=== PATIENT | male | born 1950 | race Asian ===

== ENCOUNTER 2017-02-23 07:42 | Outpatient (CLI) | payer OTHER ==
[~2017-02-23 07:42] MED LIST: EDLUAR10 MG PO; GABA100C2 PO; GABA300C2 PO; MYRBETRIQ50 MG PO; NORCO 10/325***1 TAB PO; OMEPRAZOLE20 M2 PO; OMEPRAZOLE40 MG OR; PAXIL10 MG PO; PRAVACHOL20 MG PO; TAMS0.4C PO; TRIBENZO2 PO; WARFARIN5 MG PO; ZOFRAN8 MG OR
[2017-02-23 11:06] LABS: PLATELET COUNT 306 K/uL (142-355)
[2017-02-23 11:25] LABS: POTASSIUM 3.9 mmol/L (3.6-5.2); SODIUM 131 mmol/L (136-145)
== END 2017-02-23 19:21 | disposition home or self-care (01) ==
LOC: LABW 07:42
PROVIDERS: Internal Medicine
DX: I10 Essential (primary) hypertension (principal)
CPT/HCPCS: 36415; 80053; 80061; 81000; 83735; 84443; 85027

== ENCOUNTER 2017-06-14 09:28 | Outpatient (CLI) | payer OTHER | END 2017-06-14 10:30 | disposition home or self-care (01) | LOC: LABW 09:28 | PROVIDERS: Internal Medicine | DX: I10 Essential (primary) hypertension (principal); E83.42 Hypomagnesemia | CPT/HCPCS: 36415; 80053; 83735 ==

== ENCOUNTER 2017-09-14 08:48 | Outpatient (CLI) | payer OTHER ==
[2017-09-14 09:13] LABS: PLATELET COUNT 291 K/uL (142-355)
[2017-09-14 10:18] LABS: POTASSIUM 3.3 mmol/L (3.6-5.2)
== END 2017-09-14 19:11 | disposition home or self-care (01) ==
LOC: LABW 08:48
PROVIDERS: Internal Medicine
DX: I10 Essential (primary) hypertension (principal); E83.42 Hypomagnesemia; N40.0 Benign prostatic hyperplasia without lower urinary tract symptoms
CPT/HCPCS: 36415; 80053; 80061; 81000; 83735; 84153; 84443; 85027

== ENCOUNTER 2018-01-23 09:06 | Outpatient (CLI) | payer OTHER | END 2018-01-23 19:16 | disposition home or self-care (01) | LOC: LABW 09:06 | PROVIDERS: Internal Medicine | DX: I10 Essential (primary) hypertension (principal) | CPT/HCPCS: 36415; 80053; 80061; 83735 ==

== ENCOUNTER 2018-07-10 08:52 | Outpatient (CLI) | payer OTHER ==
[2018-07-10 09:35] LABS: PLATELET COUNT 285 K/uL (142-355); POTASSIUM 3.8 mmol/L (3.6-5.2)
== END 2018-07-10 19:43 | disposition home or self-care (01) ==
LOC: LABW 08:52
PROVIDERS: Internal Medicine
DX: I10 Essential (primary) hypertension (principal); E78.00 Pure hypercholesterolemia, unspecified
CPT/HCPCS: 36415; 80053; 80061; 81000; 83735; 84439; 84443; 84550; 85027

== ENCOUNTER 2018-10-15 08:13 | Outpatient (CLI) | payer OTHER ==
[2018-10-15 08:37] LABS: PLATELET COUNT 290 K/uL (142-355)
[2018-10-15 08:54] LABS: POTASSIUM 3.7 mmol/L (3.6-5.2)
== END 2018-10-15 19:56 | disposition home or self-care (01) ==
LOC: LABW 08:13
PROVIDERS: Internal Medicine
DX: I10 Essential (primary) hypertension (principal); Z79.899 Other long term (current) drug therapy
CPT/HCPCS: 36415; 80053; 80061; 81000; 83735; 84443; 84550; 85027

== ENCOUNTER 2019-01-22 08:35 | Outpatient (CLI) | payer OTHER | END 2019-01-22 19:03 | disposition home or self-care (01) | LOC: LABW 08:35 | PROVIDERS: Internal Medicine | DX: E78.00 Pure hypercholesterolemia, unspecified (principal); R79.89 Other specified abnormal findings of blood chemistry; Z12.5 Encounter for screening for malignant neoplasm of prostate; N40.0 Benign prostatic hyperplasia without lower urinary tract symptoms | CPT/HCPCS: 36415; 80061; 84153; 84439; 84443 ==

== ENCOUNTER 2019-08-27 10:32 | Outpatient (CLI) | payer OTHER ==
[2019-08-27 11:08] LABS: PLATELET COUNT 299 K/uL (142-355)
[2019-08-27 11:28] LABS: POTASSIUM 4.2 mmol/L (3.6-5.2)
== END 2019-08-27 22:22 | disposition home or self-care (01) ==
LOC: LAB 10:32
PROVIDERS: Internal Medicine
DX: I10 Essential (primary) hypertension (principal); E03.8 Other specified hypothyroidism; E78.00 Pure hypercholesterolemia, unspecified
CPT/HCPCS: 80053; 80061; 81000; 83735; 84439; 84443; 85027

== ENCOUNTER 2020-02-25 12:23 | Outpatient (CLI) | payer OTHER ==
[2020-02-25 12:59] LABS: PLATELET COUNT 301 K/uL (142-355)
[2020-02-25 13:19] LABS: POTASSIUM 3.5 mmol/L (3.6-5.2)
== END 2020-02-25 20:45 | disposition home or self-care (01) ==
LOC: LAB 12:23
PROVIDERS: ATTEND Internal Medicine
DX: E78.00 Pure hypercholesterolemia, unspecified (principal); I10 Essential (primary) hypertension; M19.90 Unspecified osteoarthritis, unspecified site; E83.42 Hypomagnesemia
CPT/HCPCS: 80053; 80061; 81000; 83735; 84439; 84443; 84550; 85027

== ENCOUNTER 2020-03-10 17:02 | Outpatient (CLI) | payer OTHER ==
[2020-03-10 17:26] LABS: PLATELET COUNT 283 K/uL (142-355)
== END 2020-03-10 20:04 | disposition home or self-care (01) ==
LOC: LAB 17:02
PROVIDERS: ATTEND Internal Medicine
DX: D72.828 Other elevated white blood cell count (principal); R79.89 Other specified abnormal findings of blood chemistry; Z79.899 Other long term (current) drug therapy
CPT/HCPCS: 84439; 84443; 85027

== ENCOUNTER 2020-04-12 14:11 | Outpatient (CLI) | payer OTHER ==
[2020-04-12 14:29] LABS: PLATELET COUNT 287 K/uL (142-355)
== END 2020-04-12 21:12 | disposition home or self-care (01) ==
LOC: LAB 14:11
PROVIDERS: ATTEND Internal Medicine
DX: D72.828 Other elevated white blood cell count (principal); R79.89 Other specified abnormal findings of blood chemistry; Z79.899 Other long term (current) drug therapy
CPT/HCPCS: 84439; 84443; 85027

== ENCOUNTER 2020-05-20 13:53 | Outpatient (CLI) | payer OTHER ==
[2020-05-20 14:26] LABS: PLATELET COUNT 294 K/uL (142-355)
[2020-05-20 14:44] LABS: POTASSIUM 4.9 mmol/L (3.6-5.2)
== END 2020-05-20 20:00 | disposition home or self-care (01) ==
LOC: LAB 13:53
PROVIDERS: ATTEND Internal Medicine
DX: Z00.00 Encounter for general adult medical examination without abnormal findings (principal); Z12.5 Encounter for screening for malignant neoplasm of prostate; Z79.899 Other long term (current) drug therapy
CPT/HCPCS: 80053; 80061; 81000; 84153; 84439; 84443; 85027

== ENCOUNTER 2020-06-03 07:51 | Outpatient (CLI) | payer OTHER | END 2020-06-03 20:03 | disposition home or self-care (01) | LOC: CT 07:51 | PROVIDERS: ATTEND Internal Medicine | DX: Z12.2 Encounter for screening for malignant neoplasm of respiratory organs (principal); Z13.6 Encounter for screening for cardiovascular disorders; R19.09 Other intra-abdominal and pelvic swelling, mass and lump; F17.210 Nicotine dependence, cigarettes, uncomplicated | CPT/HCPCS: G0297-TC ==

== ENCOUNTER 2020-07-28 12:09 | Outpatient (CLI) | payer OTHER ==
[2020-07-28 12:32] LABS: PLATELET COUNT 275 K/uL (142-355)
== END 2020-07-28 21:26 | disposition home or self-care (01) ==
LOC: LAB 12:09
PROVIDERS: ATTEND Internal Medicine
DX: I10 Essential (primary) hypertension (principal); D72.828 Other elevated white blood cell count
CPT/HCPCS: 80061; 85027

== ENCOUNTER 2020-10-27 12:32 | Outpatient (CLI) | payer OTHER ==
[2020-10-27 13:20] LABS: PLATELET COUNT 320 K/uL (142-355)
[2020-10-27 14:00] LABS: POTASSIUM 4.3 mmol/L (3.6-5.2)
== END 2020-10-27 20:58 | disposition home or self-care (01) ==
LOC: LAB 12:32
PROVIDERS: ATTEND Internal Medicine
DX: I10 Essential (primary) hypertension (principal); M54.41 Lumbago with sciatica, right side
CPT/HCPCS: 80053; 80061; 85027

== ENCOUNTER 2021-01-06 14:08 | Outpatient (CLI) | payer OTHER | END 2021-01-06 18:00 | disposition home or self-care (01) | LOC: RAD 14:08 | PROVIDERS: ATTEND Internal Medicine | DX: M25.512 Pain in left shoulder (principal) ==

== ENCOUNTER 2021-02-04 14:32 | Outpatient (CLI) | payer OTHER ==
[2021-02-04 14:52] LABS: PLATELET COUNT 303 K/uL (142-355)
[2021-02-04 15:11] LABS: POTASSIUM 3.6 mmol/L (3.6-5.2)
== END 2021-02-04 21:05 | disposition home or self-care (01) ==
LOC: LAB 14:32
PROVIDERS: ATTEND Internal Medicine
DX: I10 Essential (primary) hypertension (principal); E03.8 Other specified hypothyroidism; M54.41 Lumbago with sciatica, right side
CPT/HCPCS: 80053; 80061; 84439; 84443; 85027

== ENCOUNTER 2021-06-08 16:53 | Observation (INO) | payer OTHER ==
[~2021-06-08] VITALS: Ht 180.3 cm; Wt 93.6 kg
[~2021-06-08 16:53] MED LIST changes: -EDLUAR10 MG PO; -PRAVACHOL20 MG PO; +PRAVASTATIN PO; +ZOLPIDEM PO
[2021-06-08 16:58] VITALS: BP 162/96; TEMP 98.7
[2021-06-08 17:29] LABS: PLATELET COUNT 345 K/uL (142-355)
[2021-06-08 17:30] VITALS: BP 153/98
[2021-06-08 17:37] LABS: POTASSIUM 3.9 mmol/L (3.6-5.2)
[2021-06-08 17:44] LABS: PARTIAL THROMBOPLASTIN TIME 23.9 SECONDS (24.5-33.6)
[2021-06-08 18:00] VITALS: BP 150/87
[2021-06-08 19:43] VITALS: BP 159/90; TEMP 98.5
[2021-06-08 19:57] VITALS: BP 159/90; TEMP 98.5; Ht 180.3 cm; Wt 93.6 kg
[2021-06-08 23:49] VITALS: BP 112/65; TEMP 98.5
[2021-06-09 04:08] VITALS: BP 91/54; TEMP 98.4
[2021-06-09 08:00] VITALS: BP 127/77; TEMP 98.4
[2021-06-09 08:57] LABS: PLATELET COUNT 355 K/uL (142-355)
[2021-06-09] MEDS ORDERED: OMEPRAZOLE DR20 MG PO (09:50)
[2021-06-09] MEDS ORDERED: POT CHLORIDE10 MEQ PO (09:51)
[2021-06-09] MEDS ORDERED: COZAAR100 MG PO (09:52)
[2021-06-09] MEDS ORDERED: TIZANIDINE HYDRO4 M1 PO (09:53)
[2021-06-09] MEDS ORDERED: HYDR25TA60 PO (09:53)
[2021-06-09] MEDS ORDERED: SPIRONOLACT25 MG PO (09:54)
[2021-06-09] MEDS ORDERED: EUTHYROX50 MCG PO (09:55)
[2021-06-09] MEDS ORDERED: MOBIC15 MG PO (09:56)
== END 2021-06-09 11:14 | disposition home or self-care (01) ==
LOC: ED 16:53 → MED/SURG 19:00
PROVIDERS: ADMIT Hospitalist; ATTEND Internal Medicine Endocrinology, Diabetes & Metabolism
DX: R07.89 Other chest pain (principal); K21.9 Gastro-esophageal reflux disease without esophagitis; I25.10 Atherosclerotic heart disease of native coronary artery without angina pectoris; E78.49 Other hyperlipidemia; I10 Essential (primary) hypertension; E03.8 Other specified hypothyroidism; I73.89 Other specified peripheral vascular diseases; N40.0 Benign prostatic hyperplasia without lower urinary tract symptoms; M70.31 Other bursitis of elbow, right elbow; R06.02 Shortness of breath
CPT/HCPCS: 36415; 80048; 80053; 82550; 83880; 84484; 85027; 85610; 85730; 87635; 93005; 94760; 99220; 99284; G0378; J1650; J2270; U0003

== ENCOUNTER 2021-07-06 13:52 | Outpatient (CLI) | payer OTHER ==
[~2021-07-06 13:52] MED LIST changes: +COZAAR100 MG PO; +EUTHYROX50 MCG PO; +HYDR25TA60 PO; +MOBIC15 MG PO; +OMEPRAZOLE DR20 MG PO; +POT CHLORIDE10 MEQ PO; +SPIRONOLACT25 MG PO; +TIZANIDINE HYDRO4 M1 PO
== END 2021-07-06 19:00 | disposition home or self-care (01) ==
LOC: RESP 13:52
PROVIDERS: ATTEND Specialist
DX: R07.89 Other chest pain (principal); R94.31 Abnormal electrocardiogram [ECG] [EKG]

== ENCOUNTER 2021-08-16 15:33 | Outpatient (CLI) | payer OTHER ==
[2021-08-16 15:56] LABS: PLATELET COUNT 257 K/uL (142-355)
[2021-08-16 16:23] LABS: POTASSIUM 3.8 mmol/L (3.6-5.2)
== END 2021-08-16 19:12 | disposition home or self-care (01) ==
LOC: LAB 15:33
PROVIDERS: ATTEND Internal Medicine
DX: I10 Essential (primary) hypertension (principal); Z12.5 Encounter for screening for malignant neoplasm of prostate; N40.0 Benign prostatic hyperplasia without lower urinary tract symptoms
CPT/HCPCS: 80053; 80061; 81000; 83735; 84153; 84439; 84443; 85027

== ENCOUNTER 2022-07-03 10:09 | Outpatient (CLI) | payer OTHER | END 2022-07-03 18:57 | disposition home or self-care (01) | LOC: RAD 10:09 | PROVIDERS: ATTEND Internal Medicine | DX: R07.89 Other chest pain (principal) ==

== ENCOUNTER 2022-09-08 09:14 | Outpatient (CLI) | payer OTHER | END 2022-09-08 18:57 | disposition home or self-care (01) | LOC: CT 09:14 | PROVIDERS: ATTEND Internal Medicine | DX: R91.1 Solitary pulmonary nodule (principal); Z12.2 Encounter for screening for malignant neoplasm of respiratory organs; Z13.820 Encounter for screening for osteoporosis; M85.88 Other specified disorders of bone density and structure, other site ==

== ENCOUNTER 2022-12-20 10:21 | Day surgery (SDC) | payer OTHER ==
[~2022-12-20] VITALS: Ht 165.1 cm; Wt 68.0 kg
== END 2022-12-20 15:35 | disposition home or self-care (01) ==
LOC: OR 10:21
PROVIDERS: ATTEND Internal Medicine Gastroenterology
PROC: 0DBK8ZX Excision of Ascending Colon, Via Natural or Artificial Opening Endoscopic, Diagnostic (ICD-10-PCS; principal; 2022-12-20)
DX: Z12.11 Encounter for screening for malignant neoplasm of colon (principal); Z86.010 Personal history of colon polyps; D12.2 Benign neoplasm of ascending colon; K57.30 Diverticulosis of large intestine without perforation or abscess without bleeding; K64.0 First degree hemorrhoids; I10 Essential (primary) hypertension; M19.90 Unspecified osteoarthritis, unspecified site; E07.9 Disorder of thyroid, unspecified
CPT/HCPCS: J2704; J7120